=== PATIENT | female | born 1990 | race Asian ===

== ENCOUNTER 2017-01-11 15:29 | Emergency (ER) | payer BC ==
[~2017-01-11] VITALS: Ht 162.6 cm; Wt 57.1 kg
[2017-01-11 19:12] LABS: AMPHETAMINE QUAL UR NONE DETECTED (NEG <=1000)
[2017-01-11 19:45] VITALS: BP 115/72
== END 2017-01-11 19:46 | disposition home or self-care (01) ==
LOC: ED 15:29
PROVIDERS: Emergency Medicine
DX: R00.2 Palpitations (principal); F22 Delusional disorders; E05.90 Thyrotoxicosis, unspecified without thyrotoxic crisis or storm
CPT/HCPCS: 80307